=== PATIENT | female | born 1985 | race Hispanic/Latino ===

== ENCOUNTER 2018-09-07 13:13 | Emergency (ER) | payer MEDICARE ==
[2018-09-07] MEDS ORDERED: LIDOCAINE HCL 1% 20 ML VIAL ONE (13:36)
== END 2018-09-07 15:58 | disposition home or self-care (01) ==
LOC: EDH 13:13
DX: L02.212 Cutaneous abscess of back [any part, except buttock and flank] (principal); L72.0 Epidermal cyst; E07.9 Disorder of thyroid, unspecified; Z88.6 Allergy status to analgesic agent
CPT/HCPCS: 10060; 76604

== ENCOUNTER 2018-09-13 19:58 | Emergency (ER) | payer MEDICARE | END 2018-09-13 21:08 | disposition home or self-care (01) | LOC: EDH 19:58 | DX: Z48.01 Encounter for change or removal of surgical wound dressing (principal); E07.9 Disorder of thyroid, unspecified; Z88.6 Allergy status to analgesic agent | CPT/HCPCS: 99281 ==